=== PATIENT | female | born 1930 | race Caucasian/White ===

== ENCOUNTER 2017-09-09 08:53 | Emergency (ER) | payer MEDICARE, OTHER ==
[~2017-09-09] VITALS: Ht 157.5 cm; Wt 54.4 kg
[~2017-09-09 08:53] MED LIST: ASPI81CH PO; ASPI81EC PO; CARV25 PO; CLOP75 PO; DIGO.125 PO; EFFIENT PO; FURO20 PO; HYDACE5 PO; IRON150C MT; LEVSOD25 PO; LISHYD1012 PO; LISI5 PO; LISINOPRIL; MECL25 PO; METO25ER PO; METOPROLOL PO; ONDA4 PO; PRED10 PO; SIMV40 PO; SPIR25 PO; THYROID
[2017-09-09] MEDS ORDERED: METO25ER PO (09:02)
[2017-09-09 09:17] LABS: BASOPHILS ABSOLUTE AUTO 0.06 K/mm3 (0.00-0.23); BASOPHILS PERCENT AUTO 1 % (0-2); EOSINOPHILS ABSOLUTE AUTO 0.37 K/mm3 (0.00-0.68); EOSINOPHILS PERCENT AUTO 4 % (0-6); Hematocrit 51.5 % (33.0-51.0); Hemoglobin 16.1 g/dL (11.5-16.0); IMMATURE GRAN ABSOLUTE AUTO 0.03 K/mm3 (0.00-0.10); IMMATURE GRAN PERCENT AUTO 0 % (0-1); LYMPHOCYTES ABSOLUTE AUTO 3.05 K/mm3 (0.84-5.20); LYMPHOCYTES PERCENT AUTO 31 % (21-46); MONOCYTES ABSOLUTE AUTO 0.92 K/mm3 (0.16-1.47); MONOCYTES PERCENT AUTO 9 % (4-13); Mean Corpuscular HGB 25.4 pg (26.0-34.0); Mean Corpuscular HGB Conc 31.3 g/dL (31.5-36.5); Mean Corpuscular Volume 81 fL (80-100); Mean Platelet Volume 10.5 fL (9.1-12.4); NEUTROPHILS ABSOLUTE AUTO 5.52 K/mm3 (1.96-9.15); NEUTROPHILS PERCENT AUTO 56 % (41-73); Platelet Count 426 K/mm3 (150-400); RDW Coefficient Variation 17.7 % (11.7-14.2); RDW Standard Deviation 48.8 fL (35.1-46.3); Red Blood Cell Count 6.33 M/mm3 (3.80-5.20); White Blood Cell Count 9.95 K/mm3 (4.00-11.30)
[2017-09-09 09:35] LABS: Alanine Aminotransfer (ALT/SGP 18 U/L (12-78); Albumin/Globulin Ratio 1.1 (0.8-1.8); Alk Phos 93 U/L (50-136); Anion Gap 8 mmol/L (6-16); Aspartate Aminotrans (AST/SGOT 17 U/L (12-37); Bilirubin, Total 0.9 mg/dL (0.1-1.0); Blood Urea Nitrogen 14 mg/dL (8-24); Bun/Creatinine Ratio 13.9 (12.0-20.0); CO2, Blood 28 mmol/L (21-32); Calcium, Blood 9.4 mg/dL (8.5-10.1); Chloride, Blood 102 mmol/L (98-108); Creatinine, Blood 1.01 mg/dL (0.40-1.00); Globulin, Blood 3.7 g/dL (2.2-4.0); Glomerular Filtration Rate 55 (60-); Glucose, Blood 90 mg/dL (70-99); Potassium, Blood 4.3 mmol/L (3.5-5.5); Sodium, Blood 138 mmol/L (136-145); Total Protein, Blood 7.7 g/dL (6.4-8.2); Troponin I <0.015 ng/mL (0.000-0.040)
== END 2017-09-09 11:10 | disposition home or self-care (01) ==
LOC: ER 08:53
PROVIDERS: Emergency Medicine
DX: M62.81 Muscle weakness (generalized) (principal); I25.2 Old myocardial infarction; Z88.8 Allergy status to other drugs, medicaments and biological substances; Z79.899 Other long term (current) drug therapy; Z79.82 Long term (current) use of aspirin
CPT/HCPCS: 36415; 70450; 80053; 84484; 85025; 93005; 93010; 99284

== ENCOUNTER → 2017-09-13 | Outpatient (CLI) | payer MEDICARE, OTHER | END | disposition home or self-care (01) | LOC: LAB 11:15 → LAB SHORT 11:15 | DX: R30.0 Dysuria (principal) | CPT/HCPCS: 87077; 87086; 87186 ==

== ENCOUNTER 2017-10-10 21:32 | Emergency (ER) | payer MEDICARE, OTHER ==
[~2017-10-10] VITALS: Ht 160 cm; Wt 54.4 kg
[2017-10-11] MEDS ORDERED: Ultram50 MG PO (00:03)
== END 2017-10-11 00:24 | disposition home or self-care (01) ==
LOC: ER 21:32
DX: M25.551 Pain in right hip (principal); M25.552 Pain in left hip; M54.5 Low back pain; I25.2 Old myocardial infarction; Z91.09 Other allergy status, other than to drugs and biological substances; Z79.899 Other long term (current) drug therapy; Z79.82 Long term (current) use of aspirin; W19.XXXA Unspecified fall, initial encounter
CPT/HCPCS: 72100; 73502; 99283-25

== ENCOUNTER 2017-10-13 17:49 | Inpatient (IN) | payer MEDICARE, OTHER ==
[~2017-10-13] VITALS: Ht 157.5 cm; Wt 55.6 kg
[~2017-10-13 17:49] MED LIST changes: +Ultram50 MG PO
[2017-10-13] MEDS ORDERED: HYDR1TAB94 PO (18:06)
[2017-10-13 18:30] LABS: BASOPHILS ABSOLUTE AUTO 0.05 K/mm3 (0.00-0.23); BASOPHILS PERCENT AUTO 0 % (0-2); EOSINOPHILS ABSOLUTE AUTO 0.34 K/mm3 (0.00-0.68); EOSINOPHILS PERCENT AUTO 3 % (0-6); Hemoglobin 15.8 g/dL (11.5-16.0); IMMATURE GRAN ABSOLUTE AUTO 0.06 K/mm3 (0.00-0.10); IMMATURE GRAN PERCENT AUTO 1 % (0-1); LYMPHOCYTES ABSOLUTE AUTO 2.73 K/mm3 (0.84-5.20); LYMPHOCYTES PERCENT AUTO 22 % (21-46); MONOCYTES PERCENT AUTO 10 % (4-13); Mean Corpuscular HGB 25.2 pg (26.0-34.0); Mean Corpuscular HGB Conc 32.2 g/dL (31.5-36.5); Mean Corpuscular Volume 78 fL (80-100); Mean Platelet Volume 10.5 fL (9.1-12.4); NEUTROPHILS ABSOLUTE AUTO 7.92 K/mm3 (1.96-9.15); NEUTROPHILS PERCENT AUTO 64 % (41-73); Platelet Count 420 K/mm3 (150-400); RDW Coefficient Variation 18.3 % (11.7-14.2); RDW Standard Deviation 47.8 fL (35.1-46.3); Red Blood Cell Count 6.28 M/mm3 (3.80-5.20)
[2017-10-13 19:10] LABS: Albumin, Blood 3.9 g/dL (3.4-5.0); Albumin/Globulin Ratio 1.2 (0.8-1.8); Bilirubin, Total 1.1 mg/dL (0.1-1.0); Bun/Creatinine Ratio 18.8 (12.0-20.0); Calcium, Blood 9.1 mg/dL (8.5-10.1); Creatinine, Blood 0.96 mg/dL (0.40-1.00); Globulin, Blood 3.3 g/dL (2.2-4.0); Potassium, Blood 4.3 mmol/L (3.5-5.5); Total Protein, Blood 7.2 g/dL (6.4-8.2)
[2017-10-13 19:17] LABS: Source, Urine Clean Catch
[2017-10-13 19:22] LABS: Bilirubin, Urine Neg (Neg); Blood, Urine 1+ (Neg); Glucose Qualitative, Urine Neg (Neg); Ketones, Urine Neg (Neg); Leukocyte Esterase, Urine 3+ (Neg); Nitrite, Urine Neg (Neg); Protein, Urine Neg (Neg); Urobilinogen, Urine NORM (Normal)
[2017-10-13 19:30] LABS: Appearance, Urine Cloudy (Clear); Color, Urine Yellow (P-Yellow)
[2017-10-13 19:32] LABS: Bacteria Many /hpf; Squamous Epithelial Cells Rare /hpf (Few)
[2017-10-13 21:38] LABS: Thyroid Stimulating Hormone 0.958 uIU/mL (0.360-4.800)
[2017-10-13 23:32] LABS: Osmolality, Serum 257 mos/KG (275-300)
[2017-10-13 23:40] LABS: Magnesium, Blood 1.8 mg/dL (1.6-2.4); Uric Acid, Blood 4.9 mg/dL (2.6-6.0)
[2017-10-13 23:50] LABS: Troponin I 0.048 ng/mL (0.000-0.040)
[2017-10-13 23:51] LABS: Albumin, Blood 3.9 g/dL (3.4-5.0); Anion Gap 9 mmol/L (6-16); Blood Urea Nitrogen 15 mg/dL (8-24); Bun/Creatinine Ratio 15.9 (12.0-20.0); CO2, Blood 29 mmol/L (21-32); Calcium, Blood 8.7 mg/dL (8.5-10.1); Chloride, Blood 86 mmol/L (98-108); Creatinine, Blood 0.94 mg/dL (0.40-1.00); Glomerular Filtration Rate 60 (60-); Glucose, Blood 96 mg/dL (70-99); Phosphorus, Blood 2.7 mg/dL (2.5-4.9); Potassium, Blood 4.3 mmol/L (3.5-5.5); Sodium, Blood 124 mmol/L (136-145)
[2017-10-14 04:18] LABS: Hematocrit 49.4 % (33.0-51.0); Hemoglobin 16.4 g/dL (11.5-16.0); Mean Corpuscular HGB 25.7 pg (26.0-34.0); Mean Corpuscular HGB Conc 33.2 g/dL (31.5-36.5); Mean Corpuscular Volume 77 fL (80-100); Mean Platelet Volume 10.3 fL (9.1-12.4); Platelet Count 368 K/mm3 (150-400); RDW Coefficient Variation 18.3 % (11.7-14.2); RDW Standard Deviation 47.1 fL (35.1-46.3); Red Blood Cell Count 6.39 M/mm3 (3.80-5.20); White Blood Cell Count 11.23 K/mm3 (4.00-11.30)
[2017-10-14 04:36] LABS: Albumin, Blood 4.1 g/dL (3.4-5.0); Anion Gap 11 mmol/L (6-16); Blood Urea Nitrogen 14 mg/dL (8-24); Bun/Creatinine Ratio 15.5 (12.0-20.0); CO2, Blood 29 mmol/L (21-32); Calcium, Blood 9.2 mg/dL (8.5-10.1); Chloride, Blood 86 mmol/L (98-108); Glomerular Filtration Rate >60 (60-); Glucose, Blood 94 mg/dL (70-99); Magnesium, Blood 1.9 mg/dL (1.6-2.4); Phosphorus, Blood 2.5 mg/dL (2.5-4.9); Potassium, Blood 3.9 mmol/L (3.5-5.5); Sodium, Blood 126 mmol/L (136-145)
[2017-10-14 10:31] LABS: Phosphorus, Blood 2.7 mg/dL (2.5-4.9); Potassium, Blood 3.6 mmol/L (3.5-5.5)
[2017-10-15 04:10] LABS: Hematocrit 48.4 % (33.0-51.0); Hemoglobin 15.8 g/dL (11.5-16.0); Mean Corpuscular HGB 25.6 pg (26.0-34.0); Mean Corpuscular HGB Conc 32.6 g/dL (31.5-36.5); Mean Corpuscular Volume 78 fL (80-100); Mean Platelet Volume 10.8 fL (9.1-12.4); Platelet Count 408 K/mm3 (150-400); RDW Coefficient Variation 18.7 % (11.7-14.2); RDW Standard Deviation 49.6 fL (35.1-46.3); Red Blood Cell Count 6.17 M/mm3 (3.80-5.20); White Blood Cell Count 11.72 K/mm3 (4.00-11.30)
[2017-10-15 04:28] LABS: Albumin, Blood 3.6 g/dL (3.4-5.0); Anion Gap 8 mmol/L (6-16); Blood Urea Nitrogen 18 mg/dL (8-24); Bun/Creatinine Ratio 19.2 (12.0-20.0); CO2, Blood 32 mmol/L (21-32); Chloride, Blood 89 mmol/L (98-108); Creatinine, Blood 0.94 mg/dL (0.40-1.00); Glomerular Filtration Rate 60 (60-); Glucose, Blood 89 mg/dL (70-99); Phosphorus, Blood 3.8 mg/dL (2.5-4.9); Sodium, Blood 129 mmol/L (136-145)
[2017-10-16 04:12] LABS: Hematocrit 50.8 % (33.0-51.0); Hemoglobin 16.3 g/dL (11.5-16.0); Mean Corpuscular HGB 25.3 pg (26.0-34.0); Mean Corpuscular HGB Conc 32.1 g/dL (31.5-36.5); Mean Corpuscular Volume 79 fL (80-100); Mean Platelet Volume 10.3 fL (9.1-12.4); Platelet Count 451 K/mm3 (150-400); RDW Coefficient Variation 19.1 % (11.7-14.2); Red Blood Cell Count 6.45 M/mm3 (3.80-5.20); White Blood Cell Count 11.06 K/mm3 (4.00-11.30)
[2017-10-16 04:28] LABS: Albumin, Blood 3.8 g/dL (3.4-5.0); Anion Gap 9 mmol/L (6-16); Blood Urea Nitrogen 18 mg/dL (8-24); Bun/Creatinine Ratio 16.7 (12.0-20.0); CO2, Blood 31 mmol/L (21-32); Calcium, Blood 9.2 mg/dL (8.5-10.1); Chloride, Blood 89 mmol/L (98-108); Creatinine, Blood 1.08 mg/dL (0.40-1.00); Glomerular Filtration Rate 51 (60-); Glucose, Blood 107 mg/dL (70-99); Magnesium, Blood 2.1 mg/dL (1.6-2.4); Phosphorus, Blood 2.9 mg/dL (2.5-4.9); Potassium, Blood 4.4 mmol/L (3.5-5.5); Sodium, Blood 129 mmol/L (136-145)
[2017-10-17 05:18] LABS: Hematocrit 48.9 % (33.0-51.0); Hemoglobin 15.8 g/dL (11.5-16.0)
[2017-10-17 05:40] LABS: Albumin, Blood 3.7 g/dL (3.4-5.0); Anion Gap 9 mmol/L (6-16); Blood Urea Nitrogen 16 mg/dL (8-24); Bun/Creatinine Ratio 15.1 (12.0-20.0); CO2, Blood 29 mmol/L (21-32); Calcium, Blood 9.3 mg/dL (8.5-10.1); Chloride, Blood 92 mmol/L (98-108); Creatinine, Blood 1.06 mg/dL (0.40-1.00); Glomerular Filtration Rate 52 (60-); Glucose, Blood 94 mg/dL (70-99); Phosphorus, Blood 2.7 mg/dL (2.5-4.9); Potassium, Blood 4.3 mmol/L (3.5-5.5); Sodium, Blood 130 mmol/L (136-145)
[2017-10-18 04:54] LABS: Hematocrit 45.8 % (33.0-51.0); Hemoglobin 14.8 g/dL (11.5-16.0)
[2017-10-18 05:17] LABS: Magnesium, Blood 2.2 mg/dL (1.6-2.4)
[2017-10-18 05:18] LABS: Albumin, Blood 3.3 g/dL (3.4-5.0); Anion Gap 9 mmol/L (6-16); Blood Urea Nitrogen 19 mg/dL (8-24); Bun/Creatinine Ratio 19.2 (12.0-20.0); CO2, Blood 28 mmol/L (21-32); Calcium, Blood 8.8 mg/dL (8.5-10.1); Chloride, Blood 97 mmol/L (98-108); Creatinine, Blood 0.99 mg/dL (0.40-1.00); Glomerular Filtration Rate 56 (60-); Glucose, Blood 86 mg/dL (70-99); Phosphorus, Blood 3.5 mg/dL (2.5-4.9); Potassium, Blood 4.6 mmol/L (3.5-5.5); Sodium, Blood 134 mmol/L (136-145)
[2017-10-18] MEDS ORDERED: Metoprolol Tart25 MG (15:14)
[2017-10-18] MEDS ORDERED: METO25 PO (15:16)
[2017-10-18] MEDS ORDERED: DOCU100 PO (15:18)
[2017-10-18] MEDS ORDERED: Tylenol325 MG PO (15:18)
[2017-10-18] MEDS ORDERED: LIDO700A20 TOP (15:19)
[2017-10-18] MEDS ORDERED: MAGNESIA (15:26)
[2017-10-18] MEDS ORDERED: METCAR500 PO (15:27)
[2017-10-18] MEDS ORDERED: SODCHL1 PO (15:28)
[2017-10-18] MEDS ORDERED: Bactrim Ds Tab1 EACH PO (15:29)
== END 2017-10-18 15:49 | disposition home health service (06) | DRG 640 ==
LOC: ER 17:49 → PCU 20:49 → MEDS 10-16 18:17 → ENPENDDIS 10-18 15:41 → MEDS 10-18 15:49
PROVIDERS: Family Medicine; Internal Medicine Nephrology; Nurse Practitioner Acute Care; Nurse Practitioner Family
DX: E87.1 Hypo-osmolality and hyponatremia (principal); G93.41 Metabolic encephalopathy; N39.0 Urinary tract infection, site not specified; B95.4 Other streptococcus as the cause of diseases classified elsewhere; K59.00 Constipation, unspecified; I25.10 Atherosclerotic heart disease of native coronary artery without angina pectoris; Z95.0 Presence of cardiac pacemaker; Z95.2 Presence of prosthetic heart valve; Z66 Do not resuscitate; E78.5 Hyperlipidemia, unspecified; E03.9 Hypothyroidism, unspecified; D75.1 Secondary polycythemia; I12.9 Hypertensive chronic kidney disease with stage 1 through stage 4 chronic kidney disease, or unspecified chronic kidney disease; N18.9 Chronic kidney disease, unspecified
CPT/HCPCS: 36415; 51702; 73502; 73551; 76770; 80048; 80053; 80069; 81001; 82533; 83735; 83930; 83935; 84100; 84132; 84295; 84300; 84443; 84484; 84550; 85014; 85018; 85025; 85027; 87086; 93005; 93010; 96361; 96365; 96366; 97110; 97116; 97161; 97166; 97535; 99285-25; G8978; G8979; G8987; G8988; J0696; J1650; J1940; J2405; J3010; J7030

== ENCOUNTER 2018-12-06 18:22 | Emergency (ER) | payer MEDICARE, OTHER ==
[~2018-12-06] VITALS: Ht 154.9 cm; Wt 49.9 kg
[~2018-12-06 18:22] MED LIST changes: +Bactrim Ds Tab1 EACH PO; +DOCU100 PO; +HYDR1TAB94 PO; +LIDO700A20 TOP; +MAGNESIA; +METCAR500 PO; +METO25 PO; +Metoprolol Tart25 MG; +Polytrim Eye Dr10 ML RIGHTEYE; +SODCHL1 PO; +Tylenol325 MG PO
[2018-12-06] MEDS ORDERED: CLIMARA1 EACH TOP (18:32)
[2018-12-06 19:08] LABS: BASOPHILS ABSOLUTE AUTO 0.04 K/mm3 (0.00-0.23); BASOPHILS PERCENT AUTO 0 % (0-2); EOSINOPHILS PERCENT AUTO 9 % (0-6); Hematocrit 44.2 % (33.0-51.0); Hemoglobin 13.4 g/dL (11.5-16.0); IMMATURE GRAN ABSOLUTE AUTO 0.02 K/mm3 (0.00-0.10); IMMATURE GRAN PERCENT AUTO 0 % (0-1); LYMPHOCYTES ABSOLUTE AUTO 3.56 K/mm3 (0.84-5.20); LYMPHOCYTES PERCENT AUTO 39 % (21-46); MONOCYTES ABSOLUTE AUTO 1.01 K/mm3 (0.16-1.47); MONOCYTES PERCENT AUTO 11 % (4-13); Mean Corpuscular HGB 23.6 pg (26.0-34.0); Mean Corpuscular HGB Conc 30.3 g/dL (31.5-36.5); Mean Corpuscular Volume 78 fL (80-100); Mean Platelet Volume 10.3 fL (9.1-12.4); NEUTROPHILS ABSOLUTE AUTO 3.71 K/mm3 (1.96-9.15); NEUTROPHILS PERCENT AUTO 41 % (41-73); Platelet Count 415 K/mm3 (150-400); RDW Coefficient Variation 19.6 % (11.7-14.2); RDW Standard Deviation 53.6 fL (35.1-46.3); Red Blood Cell Count 5.68 M/mm3 (3.80-5.20); White Blood Cell Count 9.14 K/mm3 (4.00-11.30)
[2018-12-06 19:28] LABS: Source, Urine Catheter
[2018-12-06 19:32] LABS: Bilirubin, Urine Neg (Neg); Blood, Urine Neg (Neg); Glucose Qualitative, Urine Neg (Neg); Ketones, Urine Neg (Neg); Leukocyte Esterase, Urine 1+ (Neg); Nitrite, Urine Neg (Neg); Protein, Urine Neg (Neg); Specific Gravity, Urine 1.005 (1.003-1.022); Urobilinogen, Urine 1+ (Normal)
[2018-12-06 19:37] LABS: Appearance, Urine Clear (Clear); Color, Urine Yellow (P-Yellow)
[2018-12-06 19:43] LABS: Bacteria Rare /hpf; Red Blood Cells, Urine 0-2 /hpf (0-2); Squamous Epithelial Cells Few /hpf (Few)
[2018-12-06 19:44] LABS: Albumin, Blood 3.2 g/dL (3.4-5.0); Bilirubin, Total 0.6 mg/dL (0.1-1.0); Bun/Creatinine Ratio 20.5 (12.0-20.0); Creatinine, Blood 1.12 mg/dL (0.40-1.00); Globulin, Blood 3.2 g/dL (2.2-4.0); Potassium, Blood 4.4 mmol/L (3.5-5.5); Total Protein, Blood 6.4 g/dL (6.4-8.2)
== END 2018-12-06 20:24 | disposition home or self-care (01) ==
LOC: ER 18:22
PROVIDERS: Emergency Medicine
DX: R41.3 Other amnesia (principal); R41.0 Disorientation, unspecified; I25.2 Old myocardial infarction; I10 Essential (primary) hypertension; Z88.8 Allergy status to other drugs, medicaments and biological substances; Z79.899 Other long term (current) drug therapy; Z79.82 Long term (current) use of aspirin
CPT/HCPCS: 36415; 71046; 80053; 81001; 85025; 87086; 93005; 93010; 99285-25

== ENCOUNTER 2019-02-01 03:04 | Emergency (ER) | payer MEDICARE, OTHER ==
[~2019-02-01] VITALS: Ht 157.5 cm; Wt 49.4 kg
[~2019-02-01 03:04] MED LIST changes: +CLIMARA1 EACH TOP
[2019-02-01] MEDS ORDERED: METO25ER PO (03:18)
[2019-02-01] MEDS ORDERED: SPIR25 PO (03:18)
[2019-02-01] MEDS ORDERED: ENTRESTO 24 MG1 EACH PO (03:18)
[2019-02-01] MEDS ORDERED: CALC.25 PO (03:19)
[2019-02-01] MEDS ORDERED: SODCHL1 PO (03:19)
[2019-02-01] MEDS ORDERED: Aspir 8181 MG PO (03:19)
[2019-02-01 04:06] LABS: BASOPHILS ABSOLUTE AUTO 0.04 K/mm3 (0.00-0.23); BASOPHILS PERCENT AUTO 1 % (0-2); EOSINOPHILS ABSOLUTE AUTO 0.36 K/mm3 (0.00-0.68); EOSINOPHILS PERCENT AUTO 4 % (0-6); Hematocrit 45.6 % (33.0-51.0); Hemoglobin 13.9 g/dL (11.5-16.0); IMMATURE GRAN ABSOLUTE AUTO 0.01 K/mm3 (0.00-0.10); IMMATURE GRAN PERCENT AUTO 0 % (0-1); LYMPHOCYTES ABSOLUTE AUTO 2.63 K/mm3 (0.84-5.20); LYMPHOCYTES PERCENT AUTO 31 % (21-46); MONOCYTES ABSOLUTE AUTO 0.84 K/mm3 (0.16-1.47); MONOCYTES PERCENT AUTO 10 % (4-13); Mean Corpuscular HGB 24.3 pg (26.0-34.0); Mean Corpuscular HGB Conc 30.5 g/dL (31.5-36.5); Mean Corpuscular Volume 80 fL (80-100); NEUTROPHILS ABSOLUTE AUTO 4.53 K/mm3 (1.96-9.15); NEUTROPHILS PERCENT AUTO 54 % (41-73); Platelet Count 385 K/mm3 (150-400); RDW Coefficient Variation 19.8 % (11.7-14.2); RDW Standard Deviation 55.4 fL (35.1-46.3); Red Blood Cell Count 5.72 M/mm3 (3.80-5.20); White Blood Cell Count 8.41 K/mm3 (4.00-11.30)
[2019-02-01 04:29] LABS: Alanine Aminotransfer (ALT/SGP 25 U/L (12-78); Albumin, Blood 3.6 g/dL (3.4-5.0); Albumin/Globulin Ratio 1.2 (0.8-1.8); Alk Phos 74 U/L (50-136); Anion Gap 7 mmol/L (6-16); Aspartate Aminotrans (AST/SGOT 21 U/L (12-37); Bilirubin, Total 0.8 mg/dL (0.1-1.0); Blood Urea Nitrogen 20 mg/dL (8-24); Bun/Creatinine Ratio 19.4 (12.0-20.0); CO2, Blood 27 mmol/L (21-32); Calcium, Blood 8.9 mg/dL (8.5-10.1); Chloride, Blood 108 mmol/L (98-108); Creatinine, Blood 1.03 mg/dL (0.40-1.00); Glomerular Filtration Rate 54 (60-); Glucose, Blood 84 mg/dL (70-99); Sodium, Blood 142 mmol/L (136-145); Total Protein, Blood 6.6 g/dL (6.4-8.2)
[2019-02-01 04:37] LABS: Troponin I <0.015 ng/mL (0.000-0.040)
== END 2019-02-01 05:24 | disposition home or self-care (01) ==
LOC: ER 03:04
PROVIDERS: Emergency Medicine
DX: R07.9 Chest pain, unspecified (principal); M79.601 Pain in right arm; M79.602 Pain in left arm; Z95.5 Presence of coronary angioplasty implant and graft; Z88.5 Allergy status to narcotic agent; Z79.899 Other long term (current) drug therapy; Z79.82 Long term (current) use of aspirin
CPT/HCPCS: 36415; 80053; 84484; 85025; 93005; 93010; 99284-25; A9270-GY

== ENCOUNTER 2019-03-02 00:05 | Emergency (ER) | payer MEDICARE, OTHER ==
[~2019-03-02] VITALS: Ht 157.5 cm; Wt 59.0 kg
[~2019-03-02 00:05] MED LIST changes: +Aspir 8181 MG PO; +CALC.25 PO; +ENTRESTO 24 MG1 EACH PO
[2019-03-02 00:35] LABS: BASOPHILS ABSOLUTE AUTO 0.04 K/mm3 (0.00-0.23); BASOPHILS PERCENT AUTO 0 % (0-2); EOSINOPHILS ABSOLUTE AUTO 0.45 K/mm3 (0.00-0.68); EOSINOPHILS PERCENT AUTO 5 % (0-6); Hematocrit 46.2 % (33.0-51.0); Hemoglobin 13.9 g/dL (11.5-16.0); IMMATURE GRAN ABSOLUTE AUTO 0.02 K/mm3 (0.00-0.10); IMMATURE GRAN PERCENT AUTO 0 % (0-1); LYMPHOCYTES PERCENT AUTO 34 % (21-46); MONOCYTES ABSOLUTE AUTO 0.98 K/mm3 (0.16-1.47); MONOCYTES PERCENT AUTO 10 % (4-13); Mean Corpuscular HGB 23.9 pg (26.0-34.0); Mean Corpuscular HGB Conc 30.1 g/dL (31.5-36.5); Mean Corpuscular Volume 80 fL (80-100); Mean Platelet Volume 9.9 fL (9.1-12.4); NEUTROPHILS PERCENT AUTO 51 % (41-73); Platelet Count 420 K/mm3 (150-400); RDW Coefficient Variation 18.6 % (11.7-14.2); Red Blood Cell Count 5.81 M/mm3 (3.80-5.20); White Blood Cell Count 9.69 K/mm3 (4.00-11.30)
[2019-03-02 00:54] LABS: Alanine Aminotransfer (ALT/SGP 17 U/L (12-78); Albumin, Blood 3.6 g/dL (3.4-5.0); Albumin/Globulin Ratio 1.2 (0.8-1.8); Alk Phos 80 U/L (50-136); Anion Gap 3 mmol/L (6-16); Aspartate Aminotrans (AST/SGOT 16 U/L (12-37); Bilirubin, Total 0.5 mg/dL (0.1-1.0); Blood Urea Nitrogen 29 mg/dL (8-24); Bun/Creatinine Ratio 26.4 (12.0-20.0); CO2, Blood 30 mmol/L (21-32); Calcium, Blood 9.1 mg/dL (8.5-10.1); Chloride, Blood 107 mmol/L (98-108); Globulin, Blood 3.1 g/dL (2.2-4.0); Glomerular Filtration Rate 50 (60-); Glucose, Blood 109 mg/dL (70-99); Potassium, Blood 4.3 mmol/L (3.5-5.5); Sodium, Blood 140 mmol/L (136-145); Total Protein, Blood 6.7 g/dL (6.4-8.2); Troponin I <0.015 ng/mL (0.000-0.040)
== END 2019-03-02 02:45 | disposition home or self-care (01) ==
LOC: ER 00:05
PROVIDERS: Emergency Medicine
DX: R53.1 Weakness (principal); I25.2 Old myocardial infarction
CPT/HCPCS: 80053; 84443; 84484; 85025; 93005; 93010; 96360; 99285-25; J7120

== ENCOUNTER 2019-10-05 03:52 | Emergency (ER) | payer MEDICARE, OTHER ==
[~2019-10-05] VITALS: Ht 154.9 cm; Wt 49.9 kg
[2019-10-05 04:22] LABS: Source, Urine Clean Catch
[2019-10-05 04:24] LABS: BASOPHILS ABSOLUTE AUTO 0.05 K/mm3 (0.00-0.23); BASOPHILS PERCENT AUTO 1 % (0-2); EOSINOPHILS ABSOLUTE AUTO 0.38 K/mm3 (0.00-0.68); EOSINOPHILS PERCENT AUTO 4 % (0-6); Hemoglobin 13.5 g/dL (11.5-16.0); IMMATURE GRAN ABSOLUTE AUTO 0.03 K/mm3 (0.00-0.10); IMMATURE GRAN PERCENT AUTO 0 % (0-1); LYMPHOCYTES ABSOLUTE AUTO 3.86 K/mm3 (0.84-5.20); LYMPHOCYTES PERCENT AUTO 35 % (21-46); MONOCYTES ABSOLUTE AUTO 1.14 K/mm3 (0.16-1.47); MONOCYTES PERCENT AUTO 10 % (4-13); Mean Corpuscular HGB 22.4 pg (26.0-34.0); Mean Corpuscular Volume 75 fL (80-100); Mean Platelet Volume 9.8 fL (9.1-12.4); NEUTROPHILS PERCENT AUTO 50 % (41-73); Platelet Count 512 K/mm3 (150-400); RDW Coefficient Variation 19.5 % (11.7-14.2); Red Blood Cell Count 6.04 M/mm3 (3.80-5.20); White Blood Cell Count 10.96 K/mm3 (4.00-11.30)
[2019-10-05 04:28] LABS: Bilirubin, Urine Neg (Neg); Blood, Urine Neg (Neg); Glucose Qualitative, Urine Neg (Neg); Ketones, Urine Neg (Neg); Leukocyte Esterase, Urine 1+ (Neg); Nitrite, Urine Neg (Neg); Protein, Urine Neg (Neg); Urobilinogen, Urine NORM (Normal)
[2019-10-05 04:29] LABS: Appearance, Urine Clear (Clear); Color, Urine Yellow (P-Yellow)
[2019-10-05 04:37] LABS: Bacteria Few /hpf; Red Blood Cells, Urine Not Seen /hpf (0-2); Squamous Epithelial Cells Few /hpf (Few)
[2019-10-05 04:37] LABS: Albumin, Blood 3.7 g/dL (3.4-5.0); Albumin/Globulin Ratio 1.1 (0.8-1.8); Bilirubin, Total 0.6 mg/dL (0.1-1.0); Calcium, Blood 9.6 mg/dL (8.5-10.1); Creatinine, Blood 1.2 mg/dL (0.40-1.00); Globulin, Blood 3.3 g/dL (2.2-4.0)
== END 2019-10-05 05:21 | disposition home or self-care (01) ==
LOC: ER 03:52
PROVIDERS: Emergency Medicine
DX: R53.1 Weakness (principal); Z79.82 Long term (current) use of aspirin; Z79.899 Other long term (current) drug therapy; I25.2 Old myocardial infarction
CPT/HCPCS: 80053; 81001; 85025; 87086; 93005; 93010; 99284-25

== ENCOUNTER 2019-12-03 03:42 | Emergency (ER) | payer MEDICARE, OTHER ==
[~2019-12-03] VITALS: Ht 160 cm; Wt 59.0 kg
[2019-12-03 04:20] LABS: BASOPHILS ABSOLUTE AUTO 0.06 K/mm3 (0.00-0.23); BASOPHILS PERCENT AUTO 1 % (0-2); EOSINOPHILS ABSOLUTE AUTO 0.33 K/mm3 (0.00-0.68); EOSINOPHILS PERCENT AUTO 3 % (0-6); Hematocrit 44.7 % (33.0-51.0); Hemoglobin 13.6 g/dL (11.5-16.0); IMMATURE GRAN ABSOLUTE AUTO 0.05 K/mm3 (0.00-0.10); IMMATURE GRAN PERCENT AUTO 0 % (0-1); LYMPHOCYTES ABSOLUTE AUTO 5.08 K/mm3 (0.84-5.20); LYMPHOCYTES PERCENT AUTO 39 % (21-46); MONOCYTES ABSOLUTE AUTO 1.49 K/mm3 (0.16-1.47); MONOCYTES PERCENT AUTO 11 % (4-13); Mean Corpuscular HGB 22.6 pg (26.0-34.0); Mean Corpuscular HGB Conc 30.4 g/dL (31.5-36.5); Mean Corpuscular Volume 74 fL (80-100); Mean Platelet Volume 10.4 fL (9.1-12.4); NEUTROPHILS ABSOLUTE AUTO 6.11 K/mm3 (1.96-9.15); NEUTROPHILS PERCENT AUTO 47 % (41-73); Platelet Count 562 K/mm3 (150-400); RDW Coefficient Variation 19.2 % (11.7-14.2); RDW Standard Deviation 49.8 fL (35.1-46.3); Red Blood Cell Count 6.01 M/mm3 (3.80-5.20); White Blood Cell Count 13.12 K/mm3 (4.00-11.30)
[2019-12-03 04:50] LABS: Albumin, Blood 3.9 g/dL (3.4-5.0); Albumin/Globulin Ratio 1.3 (0.8-1.8); Bilirubin, Total 0.7 mg/dL (0.1-1.0); Bun/Creatinine Ratio 25.6 (12.0-20.0); Calcium, Blood 9.5 mg/dL (8.5-10.1); Creatinine, Blood 1.21 mg/dL (0.40-1.00); Globulin, Blood 3.1 g/dL (2.2-4.0); Magnesium, Blood 2.2 mg/dL (1.6-2.4); Potassium, Blood 5.5 mmol/L (3.5-5.5); Troponin I 0.021 ng/mL (0.000-0.040)
== END 2019-12-03 06:40 | disposition home or self-care (01) ==
LOC: ER 03:42
PROVIDERS: Emergency Medicine
DX: F41.0 Panic disorder [episodic paroxysmal anxiety] (principal); I25.2 Old myocardial infarction; E78.5 Hyperlipidemia, unspecified; Z95.0 Presence of cardiac pacemaker; Z95.5 Presence of coronary angioplasty implant and graft; Z79.82 Long term (current) use of aspirin; Z79.899 Other long term (current) drug therapy; Z20.828 Contact with and (suspected) exposure to other viral communicable diseases
CPT/HCPCS: 71045; 80053; 83735; 83880; 84484; 85025; 93005; 93010; 96374; 99284-25; J2060; U0003

== ENCOUNTER 2019-12-30 11:14 | Observation (INO) | payer MEDICARE, OTHER ==
[~2019-12-30] VITALS: Ht 157.5 cm; Wt 53.3 kg
[~2019-12-30 11:14] MED LIST changes: -Aspir 8181 MG PO; -ENTRESTO 24 MG1 EACH PO
[2019-12-30 11:55] LABS: BASOPHILS ABSOLUTE AUTO 0.05 K/mm3 (0.00-0.23); BASOPHILS PERCENT AUTO 0 % (0-2); EOSINOPHILS ABSOLUTE AUTO 0.18 K/mm3 (0.00-0.68); EOSINOPHILS PERCENT AUTO 2 % (0-6); Hematocrit 46.6 % (33.0-51.0); Hemoglobin 13.9 g/dL (11.5-16.0); IMMATURE GRAN ABSOLUTE AUTO 0.05 K/mm3 (0.00-0.10); IMMATURE GRAN PERCENT AUTO 0 % (0-1); LYMPHOCYTES ABSOLUTE AUTO 1.76 K/mm3 (0.84-5.20); LYMPHOCYTES PERCENT AUTO 16 % (21-46); MONOCYTES ABSOLUTE AUTO 0.85 K/mm3 (0.16-1.47); MONOCYTES PERCENT AUTO 8 % (4-13); Mean Corpuscular HGB 22.8 pg (26.0-34.0); Mean Corpuscular HGB Conc 29.8 g/dL (31.5-36.5); Mean Corpuscular Volume 77 fL (80-100); Mean Platelet Volume 10.4 fL (9.1-12.4); NEUTROPHILS ABSOLUTE AUTO 8.33 K/mm3 (1.96-9.15); NEUTROPHILS PERCENT AUTO 74 % (41-73); Platelet Count 521 K/mm3 (150-400); RDW Coefficient Variation 19.1 % (11.7-14.2); Red Blood Cell Count 6.09 M/mm3 (3.80-5.20); White Blood Cell Count 11.22 K/mm3 (4.00-11.30)
[2019-12-30 12:19] LABS: Albumin, Blood 3.9 g/dL (3.4-5.0); Albumin/Globulin Ratio 1.2 (0.8-1.8); Bilirubin, Total 0.9 mg/dL (0.1-1.0); Bun/Creatinine Ratio 22.3 (12.0-20.0); Calcium, Blood 9.6 mg/dL (8.5-10.1); Creatinine, Blood 1.39 mg/dL (0.40-1.00); Globulin, Blood 3.2 g/dL (2.2-4.0); Potassium, Blood 5.6 mmol/L (3.5-5.5); Total Protein, Blood 7.1 g/dL (6.4-8.2); Troponin I 0.052 ng/mL (0.000-0.040)
[2019-12-30] MEDS ORDERED: METO25ER PO (12:43)
[2019-12-30] MEDS ORDERED: ENTRESTO 24 MG1 EACH PO (12:43)
[2019-12-30] MEDS ORDERED: SPIR25 PO (12:44)
[2019-12-30] MEDS ORDERED: Aspir 8181 MG PO (12:45)
[2019-12-30] MEDS ORDERED: SODCHL1 PO (12:59)
[2019-12-30] MEDS ORDERED: MELA3 PO (12:59)
[2019-12-30] MEDS ORDERED: CALCIUM PO (13:00)
[2019-12-30 13:14] LABS: Source, Urine Clean Catch
[2019-12-30 13:21] LABS: Appearance, Urine Clear (Clear); Bilirubin, Urine Neg (Neg); Blood, Urine Neg (Neg); Color, Urine Yellow (P-Yellow); Glucose Qualitative, Urine Neg (Neg); Ketones, Urine Neg (Neg); Leukocyte Esterase, Urine Neg (Neg); Nitrite, Urine Neg (Neg); Protein, Urine 1+ (Neg); Specific Gravity, Urine 1.015 (1.003-1.022); Urobilinogen, Urine NORM (Normal)
--- NOTE | 2019-12-30 23:29 | NUR ---
CARE ASSUMPTION PT A&O X3. PT PLEASANT, OCCASIONALLY FORGETFUL, DOES NOT REMEMEBER WHAT MEDICATION SHE TAKES AT HOME AT NIGHT. SP02>92% ON RA. TELEMETRY READS 100% PACED, HR 61. PT DENIES CHEST PAIN/PRESSURE/SOB. PT UP TO BATHROOM W/ MINIMAL ASSISTANCE. PT STATES SHE WALKS "EVERYWHERE. EVEN TO [employer]". AND THAT SHE IS "VERY ACTIVE". CALL LIGHT IN REACH. WILL CONTINUE TO MONITOR.
[2019-12-31 03:31] LABS: BASOPHILS ABSOLUTE AUTO 0.05 K/mm3 (0.00-0.23); BASOPHILS PERCENT AUTO 0 % (0-2); EOSINOPHILS ABSOLUTE AUTO 0.28 K/mm3 (0.00-0.68); EOSINOPHILS PERCENT AUTO 2 % (0-6); Hemoglobin 13.3 g/dL (11.5-16.0); IMMATURE GRAN ABSOLUTE AUTO 0.04 K/mm3 (0.00-0.10); IMMATURE GRAN PERCENT AUTO 0 % (0-1); LYMPHOCYTES ABSOLUTE AUTO 3.97 K/mm3 (0.84-5.20); LYMPHOCYTES PERCENT AUTO 35 % (21-46); MONOCYTES ABSOLUTE AUTO 1.19 K/mm3 (0.16-1.47); MONOCYTES PERCENT AUTO 10 % (4-13); Mean Corpuscular HGB 22.5 pg (26.0-34.0); Mean Corpuscular HGB Conc 30.2 g/dL (31.5-36.5); Mean Corpuscular Volume 75 fL (80-100); Mean Platelet Volume 10.1 fL (9.1-12.4); NEUTROPHILS ABSOLUTE AUTO 5.98 K/mm3 (1.96-9.15); NEUTROPHILS PERCENT AUTO 52 % (41-73); Platelet Count 488 K/mm3 (150-400); RDW Coefficient Variation 18.6 % (11.7-14.2); RDW Standard Deviation 49.1 fL (35.1-46.3); Red Blood Cell Count 5.91 M/mm3 (3.80-5.20); White Blood Cell Count 11.51 K/mm3 (4.00-11.30)
[2019-12-31 03:59] LABS: Anion Gap 5 mmol/L (6-16); Blood Urea Nitrogen 32 mg/dL (8-24); Bun/Creatinine Ratio 23.5 (12.0-20.0); CHOL/HDL RATIO 2.6; CO2, Blood 25 mmol/L (21-32); Chloride, Blood 105 mmol/L (98-108); Cholesterol 136 mg/dL (50-200); Creatinine, Blood 1.36 mg/dL (0.40-1.00); Glomerular Filtration Rate 39 (60-); Glucose, Blood 81 mg/dL (70-99); HDL Cholesterol 53 mg/dL (>39); LDL/HDL RATIO 1.3; Low Density Lipoprotein Chol 70 mg/dL (0-110); Magnesium, Blood 2.1 mg/dL (1.6-2.4); Potassium, Blood 4.9 mmol/L (3.5-5.5); Sodium, Blood 135 mmol/L (136-145); Triglycerides 63 mg/dL (30-160); Very Low Density Lipoprot Chol 12 mg/dL (6-32)
--- NOTE | 2019-12-31 05:56 | NUR ---
SHIFT SUMMARY PT ALERT, PLEASANT, FORGETFUL. SP02>92% ON RA. TELEMETRY READS 100% PACED, HR 60'S. PT DENIES CHEST PAIN/PRESSURE/SOB. TOOK PT'S ORTHOSTATIC BP THIS AM WITH THE FOLLOWING RESULTS: L: 109/71 SIT: 126/69 STAND:123/74. PT UP TO BATHROOM SEVERAL TIMES W/ ASSISTANCE. PT ATTEMPTED TO GET OUT OF BED ALONE TO USE THE RESTROOM. PT STATED SHE "NEEDS TO GET UP" "DID NOT WANT TO BE A BOTHER" SO SHE DID NOT USE CALL LIGHT. PT IV FOUND PULLED OUT AT BEGINNING OF SHIFT. PT STATES "I DONT REMEMBER DOING THAT". NEW 20G IV PLACED IN R FOREARM. BED ALARM ON. WILL CONTINUE TO MONITOR.
--- NOTE | 2019-12-31 10:55 | NUR ---
Echocardiogram completed.
--- NOTE | 2019-12-31 17:38 | NUR ---
SHIFT SUMMARY; A/A/OX3 DURING SHIFT. MULTIPLE EPISODES OF FORGETFULLNESS DURING SHIFT. HO IN LAW AT BEDSIDE IN AFTERNOON WHO REPORTS THIS HAS BEEN INCREASING OVER THE LAST COUPLE MONTHS. CARDIOLOGY CONSULT COMPLETE TODAY AND MEDICAL MANAGEMENT DISCUSSED.
--- NOTE | 2019-12-31 20:50 | NUR ---
PT CONTINUES TO CLIMB OOB OR BEDSIDE CHAIR WHEN PLACED THERE; PT VERY IMPULSIVE AND UNABLE FOLLOW DIRECTIONS; DR MARTINEZ NOTIFIED WITH ORDERS FOR RESTORIL 7.5MG PO NOW AND QHS PRN.
--- NOTE | 2020-01-01 03:36 | NUR ---
SHIFT SUMMARY: 89 Y/O SLENDER FEMALE HAD VERY RESTLESS SHIFT ALL NIGHT; PT UNABLE TO RELAX, SLEEP OR FOLLOW ANY REDIRECTIONS BY NURSING STAFF; PT INITIALLY WAS GIVEN RESTORIL 7.5MG PO WHICH WORKED FOR < 3 HOURS AND THEN PATIENT WAS AWAKE AGAIN ATTEMPTING CLIMB OOB (GAIT UNSTEADY, WHILE DISROBING AND REMOVING TELEMETRY); PT WAS GIVEN HALDOL 2MG IVP AND TROY VEST WAS THEN APPLIED FOR SAFETY AFTER NUMEROUS ATTEMPTS TO REDIRECT; PT ALERT TO PERSON ONLY; TELEMETRY REFLECTS PACED PER CLEMENTINE--SENIOR MARKET INTELLIGENCE CONSULTANT; BED ALARM MAINTAINED, BED LOW POSITION WITH CALL LIGHT AT SIDE.
[2020-01-01 04:33] LABS: Albumin, Blood 3.9 g/dL (3.4-5.0); Anion Gap 7 mmol/L (6-16); Blood Urea Nitrogen 24 mg/dL (8-24); Bun/Creatinine Ratio 22.6 (12.0-20.0); CO2, Blood 24 mmol/L (21-32); Calcium, Blood 9.4 mg/dL (8.5-10.1); Chloride, Blood 99 mmol/L (98-108); Creatinine, Blood 1.06 mg/dL (0.40-1.00); Free Thyroxine 0.96 ng/dL (0.70-1.60); Glomerular Filtration Rate 52 (60-); Glucose, Blood 99 mg/dL (70-99); Potassium, Blood 4.6 mmol/L (3.5-5.5); Sodium, Blood 130 mmol/L (136-145)
--- NOTE | 2020-01-01 12:30 | NUR ---
Patient in PCU 11. Device interrogation ordered by hospitalist. Last device interrogation May 2017. Adequate battery status. In atrial fibb with normanl atrial and ventricular sensing. Normal ventricular capture. Atrial lead impedance 418 ohms. RV lead impedance 437 ohms. LV lead impedance 570 ohms. RV wave 14.125 mV. RV threshold 0.5V@.4ms. LV threshold 1.0V@.4 ms. Ap 0.8%. BiVp 49%. AT/AF 100%
--- NOTE | 2020-01-01 12:46 | NUR ---
Spiritual care visit conducted. Patient is sitting on a chair and alert. Patient tells me about the of her in [facility], about her family unit complications and about her support system. Patient also discusses her Advnedist belief system and her grown children's commitment to that Spiritism. I listen empathically and provide grief support, pastoral developmental training counselor and prayer. Patient responds well and shows signs of increased peace. I will continue to remain available to patient and family.
[2020-01-01] MEDS ORDERED: ATORVASTATIN CA10 M1 PO (13:49)
--- NOTE | 2020-01-01 15:13 | NUR ---
DISCHARGED TO HOME WITH DAUGHTER IN LAW, VERBAL AND WRITTEN INSTRUCTIONS GIVEN, RX PHONED INTO [facility].
--- NOTE | 2020-01-01 15:37 | NUR ---
report to roshan salomon to assume care.
== END 2020-01-01 15:31 | disposition home or self-care (01) ==
LOC: ER 11:14 → PCU 11:15 → ER 16:53 → PCU 16:53
PROVIDERS: Physician Assistant; ADMIT Internal Medicine
PROC: 4B02XSZ Measurement of Cardiac Pacemaker, External Approach (ICD-10-PCS; principal; 2020-01-01)
DX: I21.A1 Myocardial infarction type 2 (principal); I13.0 Hypertensive heart and chronic kidney disease with heart failure and stage 1 through stage 4 chronic kidney disease, or unspecified chronic kidney disease; N18.30 Chronic kidney disease, stage 3 unspecified; I50.22 Chronic systolic (congestive) heart failure; I25.2 Old myocardial infarction; I49.9 Cardiac arrhythmia, unspecified; E02 Subclinical iodine-deficiency hypothyroidism; E87.5 Hyperkalemia; I25.10 Atherosclerotic heart disease of native coronary artery without angina pectoris; E87.1 Hypo-osmolality and hyponatremia; E86.0 Dehydration; E78.5 Hyperlipidemia, unspecified; I48.20 Chronic atrial fibrillation, unspecified; I95.2 Hypotension due to drugs; T50.905A Adverse effect of unspecified drugs, medicaments and biological substances, initial encounter; F41.9 Anxiety disorder, unspecified; I44.7 Left bundle-branch block, unspecified; I25.5 Ischemic cardiomyopathy; Z23 Encounter for immunization; Z79.82 Long term (current) use of aspirin; Z79.899 Other long term (current) drug therapy; Z95.0 Presence of cardiac pacemaker; Z95.5 Presence of coronary angioplasty implant and graft; Z91.041 Radiographic dye allergy status; Z95.2 Presence of prosthetic heart valve; Z90.49 Acquired absence of other specified parts of digestive tract; Z98.1 Arthrodesis status; Z66 Do not resuscitate
CPT/HCPCS: 36415; 71046; 80048; 80053; 80061; 80069; 83735; 83880; 84439; 84443; 84484; 85025; 93005; 93010; 93281; 93306; 96360; 97110; 97161; 97165; 97530; 97535; 99285-25; J1630; J1650; J7030

== ENCOUNTER 2020-01-02 03:00 | Observation (INO) | payer MEDICARE, OTHER ==
[~2020-01-02] VITALS: Ht 134.6 cm; Wt 58.6 kg
[~2020-01-02 03:00] MED LIST changes: +ATORVASTATIN CA10 M1 PO; +Aspir 8181 MG PO; +CALCIUM PO; +ENTRESTO 24 MG1 EACH PO; +MELA3 PO
[2020-01-02 03:27] LABS: BASOPHILS ABSOLUTE AUTO 0.02 K/mm3 (0.00-0.23); BASOPHILS PERCENT AUTO 0 % (0-2); EOSINOPHILS ABSOLUTE AUTO 0.02 K/mm3 (0.00-0.68); EOSINOPHILS PERCENT AUTO 0 % (0-6); Hematocrit 42.9 % (33.0-51.0); Hemoglobin 13.1 g/dL (11.5-16.0); IMMATURE GRAN ABSOLUTE AUTO 0.04 K/mm3 (0.00-0.10); IMMATURE GRAN PERCENT AUTO 0 % (0-1); LYMPHOCYTES ABSOLUTE AUTO 1.39 K/mm3 (0.84-5.20); LYMPHOCYTES PERCENT AUTO 11 % (21-46); MONOCYTES PERCENT AUTO 7 % (4-13); Mean Corpuscular HGB 22.5 pg (26.0-34.0); Mean Corpuscular HGB Conc 30.5 g/dL (31.5-36.5); Mean Corpuscular Volume 74 fL (80-100); NEUTROPHILS ABSOLUTE AUTO 10.34 K/mm3 (1.96-9.15); NEUTROPHILS PERCENT AUTO 81 % (41-73); Platelet Count 490 K/mm3 (150-400); RDW Coefficient Variation 18.2 % (11.7-14.2); RDW Standard Deviation 46.6 fL (35.1-46.3); Red Blood Cell Count 5.82 M/mm3 (3.80-5.20); White Blood Cell Count 12.71 K/mm3 (4.00-11.30)
[2020-01-02 03:47] LABS: Albumin, Blood 3.8 g/dL (3.4-5.0); Albumin/Globulin Ratio 1.3 (0.8-1.8); Bilirubin, Total 1.7 mg/dL (0.1-1.0); Bun/Creatinine Ratio 19.1 (12.0-20.0); Calcium, Blood 9.1 mg/dL (8.5-10.1); Creatinine, Blood 1.15 mg/dL (0.40-1.00); Globulin, Blood 2.9 g/dL (2.2-4.0); Potassium, Blood 5.3 mmol/L (3.5-5.5); Total Protein, Blood 6.7 g/dL (6.4-8.2); Troponin I 0.103 ng/mL (0.000-0.040)
[2020-01-02 03:58] LABS: Source, Urine Clean Catch
[2020-01-02 04:00] LABS: Bilirubin, Urine Neg (Neg); Blood, Urine 1+ (Neg); Glucose Qualitative, Urine Neg (Neg); Ketones, Urine 2+ (Neg); Leukocyte Esterase, Urine 1+ (Neg); Nitrite, Urine Neg (Neg); Protein, Urine 2+ (Neg); Urobilinogen, Urine NORM (Normal)
[2020-01-02 04:11] LABS: Appearance, Urine Hazy (Clear); Color, Urine Yellow (P-Yellow)
[2020-01-02 04:12] LABS: Amorphous Light (0-Heavy); Bacteria Few /hpf; Red Blood Cells, Urine 0-2 /hpf (0-2); Squamous Epithelial Cells Few /hpf (Few); White Blood Cells, Urine 0-2 /hpf (0-5)
--- NOTE | 2020-01-02 07:41 | NUR ---
ADMISSION/SHIFT SUMMARY PT ARRIVED TO UNIT IN STABLE CONDTION, PT WAS CONFUSED AND TRYING TO PULL OF MONITORS AND STICKERS FROM HERSELF, SOME THAT WERE NOT EVEN ON HER. I ONLY HAD THE PT FOR A BRIEF TIME BEFORE SHIFT CHANGE AND WAS UNABLE TO COMPLETE A FULL ASSESSMENT, BUT PT SHOWED NO WOUNDS, STRONG PULSES T/O EXTREMITIES, AND CLEAR LUNGS.
[2020-01-02 13:25] LABS: Bun/Creatinine Ratio 19.6 (12.0-20.0); Calcium, Blood 9.2 mg/dL (8.5-10.1); Creatinine, Blood 1.12 mg/dL (0.40-1.00); Potassium, Blood 5.2 mmol/L (3.5-5.5)
--- NOTE | 2020-01-02 16:21 | NUR ---
RN PROGRESS NOTE PT STATUS CHANGE FROM PCU TO MED WITH TELE PT HAS BEEN CONFUSED MOST OF THE DAY ORTIENTED TO SELF OF THIS AFTERNOON PT NO LONGER ORIENTED TO LOCATION OR TIME PT NEEDS CHAIR ALARM OR BED ALARM AT ALL TIMES, 1 PERSON ASSIST WITH WALKER AND GAIT BELT. PT AMBULATED THE HALLS SEVERAL TIMES TODAY WITH STAFF, WALKER AND GAIT BELT. PT DOES NOT CALL APPROPRIATELY, SHE WILL CALL OUT FOR HELP OR JUST GET UP AND START WALKING. DISTRACTION WAS HELPFUL THIS AFTERNOON MAGAZINES, COLORING AND MUSIC WELL VISITING WITH STAFF. PT HAS ONE IV RIGHT AC CURRENTLY SALINE LOCKED. VS STABLE PT CURRENTLY SLEEPING
--- NOTE | 2020-01-02 18:06 | NUR ---
SHIFT SUMMARY PT AMBULATED IN [facility] THE DAY WITH 1 PERSON ASSIST AND GAIT BELT AND WALKER. PT IS CONFUSED, ORIENTED TO PERSON ONLY AT THIS TIME. IV SALINE LOCKED PT COMPLAINED OF NAUSEA EARLY TODAY, ZOFRAN WAS GIVEN AFTER A PRN ORDER WAS RECEIVED, NO FURTHER COMPLAINTS OR REPORTS OF NAUSEA FROM THE PT SINCE. LUNG SOUNDS, HEART SOUNDS ARE NORMAL, NSR, VS STABLE, ON ROOM AIR. PT IS ABLE TO AMB TO THE RESTROOM WITH 1 PERSON ASSIST AND THE WALKER, BUT DOES NOT CALL APPROPRIATELY; BED AND CHAIR ALARMS NEEDED. REORIENT PT AND EDUCATE PT FREQUENTLY AND NEEDED
--- NOTE | 2020-01-02 22:48 | NUR ---
1954 pt had just ambulated to the bathroom with assistance at this time, therefore high blood pressure and tachycardic. denies pain. very confused.
[2020-01-03 03:57] LABS: BASOPHILS ABSOLUTE AUTO 0.03 K/mm3 (0.00-0.23); BASOPHILS PERCENT AUTO 0 % (0-2); EOSINOPHILS ABSOLUTE AUTO 0.16 K/mm3 (0.00-0.68); EOSINOPHILS PERCENT AUTO 1 % (0-6); Hematocrit 39.2 % (33.0-51.0); Hemoglobin 12.3 g/dL (11.5-16.0); IMMATURE GRAN ABSOLUTE AUTO 0.04 K/mm3 (0.00-0.10); IMMATURE GRAN PERCENT AUTO 0 % (0-1); LYMPHOCYTES ABSOLUTE AUTO 3.09 K/mm3 (0.84-5.20); LYMPHOCYTES PERCENT AUTO 25 % (21-46); MONOCYTES ABSOLUTE AUTO 1.52 K/mm3 (0.16-1.47); MONOCYTES PERCENT AUTO 13 % (4-13); Mean Corpuscular HGB Conc 31.4 g/dL (31.5-36.5); Mean Corpuscular Volume 73 fL (80-100); Mean Platelet Volume 9.9 fL (9.1-12.4); NEUTROPHILS ABSOLUTE AUTO 7.35 K/mm3 (1.96-9.15); NEUTROPHILS PERCENT AUTO 60 % (41-73); Platelet Count 410 K/mm3 (150-400); RDW Coefficient Variation 18.1 % (11.7-14.2); RDW Standard Deviation 46.5 fL (35.1-46.3); Red Blood Cell Count 5.35 M/mm3 (3.80-5.20); White Blood Cell Count 12.19 K/mm3 (4.00-11.30)
[2020-01-03 04:21] LABS: Albumin, Blood 3.2 g/dL (3.4-5.0); Albumin/Globulin Ratio 1.2 (0.8-1.8); Bilirubin, Total 1.3 mg/dL (0.1-1.0); Bun/Creatinine Ratio 18.1 (12.0-20.0); Calcium, Blood 8.7 mg/dL (8.5-10.1); Creatinine, Blood 1.27 mg/dL (0.40-1.00); Globulin, Blood 2.7 g/dL (2.2-4.0); Potassium, Blood 5.3 mmol/L (3.5-5.5); Total Protein, Blood 5.9 g/dL (6.4-8.2)
--- NOTE | 2020-01-03 04:31 | NUR ---
[employer] BLANKET WEAVER SUMMARY PT IS A/O X0. SHE SLEPT WELL ALL NIGHT. VSS. TONIGHT PT HAS BEEN INCONTIENT. DENIES PAIN, SOB. GETS UP WITH 1 ASSIST WITH FWW. PT'S BECOMES HYPERTENSIVE AND TACHYCARDIC WHEN UP AND AMBULATING, THIS COMES DOWN WHEN PT IS RESTING. NO ACUTE CHANGES.
--- NOTE | 2020-01-03 07:50 | NUR ---
AM Assessment: Pt up to bathroom with one person assist and FWW. Pt oriented to self and place but confused to time, sitation. Pt forgetful and requires frequent reminding and redirecting but does attempt to follow directions. LS clear. HR reg. BT positive. Pt denies pain, nausea or SOB. States that she is feeling pretty good. Pulses palp, grasps weak. Chair alarm on. Call light in reach.
--- NOTE | 2020-01-03 11:48 | NUR ---
Spiritual care visit conducted. Patient is very sleepy but awakens to the sound of her name. She falls asleep in the middle of her own sentence. Patient is able to say, "I am just old; this is just what happens." Patient is also able to agree with having a prayer said for her. I gladly provide prayer. Patient falls asleep during the prayer but is able to wake up enough to says, "Amen!" I let patient rest. I will continue to remain available to patient and family.
--- NOTE | 2020-01-03 12:39 | NUR ---
Pt to be transfered to room 350. Report called and given to Ricarda Cohen RN. Pt still very confused, but appears comfortable. Left via w/c. Stable at time of transfer.
--- NOTE | 2020-01-03 12:56 | NUR ---
1250 ASSUMED CARE OF PT. REPORT FROM ELOY. PATIENT BROUGHT UP VIA WC. ALERT AND ORIENTED TO SELF AND PLACE. PT PLACED IN CHAIR WITH TAB ALARM ON. CALL LIGHT WITHIN REACH.
--- NOTE | 2020-01-03 18:05 | NUR ---
PT TRANSFERRED FROM PCU THIS SHIFT. SHE IS CONFUSED BUT REDIRECTABLE. PT HAS BEEN UP IN CHAIR WITH FAMILY. PT ONE ASSIST . NO ACUTE CHANGES.
[2020-01-03] MEDS ORDERED: ATOR10 PO (21:32)
[2020-01-03] MEDS ORDERED: SPIR25 PO (21:34)
--- NOTE | 2020-01-04 04:31 | NUR ---
SHIFT SUMMARY ASUMED CARE OF PT AT 1900. PT IS A/OX2, DENIES N/T IN EXTREMITES. TELE SHOWS AFLUTTER WITH BBB @ 80. LUNG OUNDS DIMINISHED. PT WAS C/I TO THE BSC. PT IS 1P SBA. URINE CLEAR AND YELLOW. PT ATTEMPTED TO GET OUT OF BED THREE TIMES LAST NIGHT. NO ACUTE EVENTS DURING THE NIGHT. PT SLEPT MOST OF THE NIGHT. CALL LIGHT IN REACH, BED IN LOWEST PSOTION, BED ALARM ON.
[2020-01-04 08:57] LABS: BASOPHILS ABSOLUTE AUTO 0.07 K/mm3 (0.00-0.23); BASOPHILS PERCENT AUTO 1 % (0-2); EOSINOPHILS ABSOLUTE AUTO 0.39 K/mm3 (0.00-0.68); EOSINOPHILS PERCENT AUTO 3 % (0-6); Hematocrit 45.3 % (33.0-51.0); Hemoglobin 13.9 g/dL (11.5-16.0); IMMATURE GRAN ABSOLUTE AUTO 0.06 K/mm3 (0.00-0.10); IMMATURE GRAN PERCENT AUTO 0 % (0-1); LYMPHOCYTES PERCENT AUTO 20 % (21-46); MONOCYTES ABSOLUTE AUTO 1.81 K/mm3 (0.16-1.47); MONOCYTES PERCENT AUTO 13 % (4-13); Mean Corpuscular HGB Conc 30.7 g/dL (31.5-36.5); Mean Corpuscular Volume 75 fL (80-100); Mean Platelet Volume 10.3 fL (9.1-12.4); NEUTROPHILS ABSOLUTE AUTO 9.08 K/mm3 (1.96-9.15); NEUTROPHILS PERCENT AUTO 64 % (41-73); Platelet Count 472 K/mm3 (150-400); RDW Coefficient Variation 19.2 % (11.7-14.2); RDW Standard Deviation 47.8 fL (35.1-46.3); Red Blood Cell Count 6.05 M/mm3 (3.80-5.20); White Blood Cell Count 14.31 K/mm3 (4.00-11.30)
[2020-01-04 09:16] LABS: Albumin, Blood 3.4 g/dL (3.4-5.0); Albumin/Globulin Ratio 1.1 (0.8-1.8); Bilirubin, Total 0.9 mg/dL (0.1-1.0); Bun/Creatinine Ratio 19.9 (12.0-20.0); Calcium, Blood 9.2 mg/dL (8.5-10.1); Creatinine, Blood 1.41 mg/dL (0.40-1.00); Globulin, Blood 3.1 g/dL (2.2-4.0); Total Protein, Blood 6.5 g/dL (6.4-8.2)
--- NOTE | 2020-01-04 11:09 | NUR ---
Spiritual care visit conducted. Patient is more alert today and very talkative. Patient will loop certain topics (like how much she enjoys fishing, one of her daughters giving Iman Richardson a run on how many husbands and divorces and about her cat). Patient talks about her Buddhist belief system and what her rubina means to her now. I listen empathically, reinforce helpful attitudes and practices and provide prayer. Patient responds well and appears to be encouraged by the time and attention given to her. I will continue to remain available to patient and family.
[2020-01-04] MEDS ORDERED: CALCIUM CARBON500 M1 PO (11:35)
[2020-01-04] MEDS ORDERED: SODCHL1 PO (11:36)
[2020-01-04] MEDS ORDERED: QUET25 PO (11:36)
--- NOTE | 2020-01-04 16:22 | NUR ---
PT DISCHARGED FROM THE UNIT. IV REMOVED. DISCHARGE INSTRUCTIONS REVIEWED WITH ALFREDO. MEDICATIONS FAXED TO [facility]. PT LEFT VIA WHEEL CHAIR.
== END 2020-01-04 16:34 | disposition home or self-care (01) ==
LOC: ER 03:00 → PCU 03:01 → MEDS 01-03 12:47
PROVIDERS: Emergency Medicine; Internal Medicine; ADMIT Internal Medicine
PROC: 4B02XSZ Measurement of Cardiac Pacemaker, External Approach (ICD-10-PCS; principal; 2020-01-02)
DX: E87.1 Hypo-osmolality and hyponatremia (principal); I21.4 Non-ST elevation (NSTEMI) myocardial infarction; I13.0 Hypertensive heart and chronic kidney disease with heart failure and stage 1 through stage 4 chronic kidney disease, or unspecified chronic kidney disease; N18.30 Chronic kidney disease, stage 3 unspecified; I50.22 Chronic systolic (congestive) heart failure; F03.90 Unspecified dementia, unspecified severity, without behavioral disturbance, psychotic disturbance, mood disturbance, and anxiety; E86.0 Dehydration; I42.9 Cardiomyopathy, unspecified; I25.10 Atherosclerotic heart disease of native coronary artery without angina pectoris; I49.9 Cardiac arrhythmia, unspecified; E03.9 Hypothyroidism, unspecified; E78.5 Hyperlipidemia, unspecified; Z95.0 Presence of cardiac pacemaker; Z79.82 Long term (current) use of aspirin; Z79.899 Other long term (current) drug therapy; Z95.5 Presence of coronary angioplasty implant and graft; Z66 Do not resuscitate; Z23 Encounter for immunization; Z51.5 Encounter for palliative care
CPT/HCPCS: 36415; 71045; 80048; 80053; 81001; 82947; 83735; 83880; 84484; 85025; 93005; 93010; 96361; 96374; 99285-25; A9270; J1650; J1940; J2405; J7030